=== PATIENT | male | born 1985 | race Caucasian/White ===

== ENCOUNTER 2017-06-29 21:09 | Emergency (ER) | payer SELFPAY ==
[~2017-06-29] VITALS: Ht 160 cm; Wt 65.8 kg
[2017-06-29 21:10] VITALS: BP 128/74
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
--- NOTE | 2017-06-29 21:10 | NUR ---
PT AMBULATED TO [facility]IR E
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
[2017-06-29 21:24] VITALS: BP 128/74
== END 2017-06-29 21:19 ==
LOC: MED 21:09
DX: Z02.89 Encounter for other administrative examinations (principal)
CPT/HCPCS: 99283